=== PATIENT | male | born 1970 | race American Indian/Alaskan Native ===

== ENCOUNTER 2016-12-27 08:34 | Emergency (ER) | payer BC, OTHER ==
[2016-12-27 08:45] VITALS: BP 136/91
--- NOTE | 2016-12-27 11:13 | Emergency Department Report ---
ED Rash HPI - HPI Chief Complaint: Skin Rash Stated Complaint: BLEEDING ON BACK OF HEAD UNSURE WHY Time Seen by Provider: 12/27/16 11:06 Duration: 1month Location: Head Rash Symptoms: Yes Itching, Yes Blistering, No Facial Swelling, No Tongue/Oral Swelling, No Breathing Difficulties, No Choking Sensation, No Wheezing/Dyspnea, No Peeling, No Fever, No Malaise, No Myalgias Severity: mild Other History: 46M PMH none p/w c/o itchy rash to back of scalp x1 month. States it is very itchy, he scratches it constantly, denies involvement of any other body part. No fever, no chills, no other rash any other body part. ED Review of Systems ROS: Stated complaint: BLEEDING ON BACK OF HEAD UNSURE WHY Other details as noted in HPI Constitutional: denies: chills, fever Eyes: denies: eye pain, eye discharge, vision change ENT: denies: ear pain, throat pain Respiratory: denies: cough, shortness of breath, wheezing Cardiovascular: denies: chest pain, palpitations Endocrine: no symptoms reported Gastrointestinal: denies: abdominal pain, nausea, diarrhea Genitourinary: denies: urgency, dysuria Musculoskeletal: denies: back pain, joint swelling, arthralgia Skin: as per HPI, rash (itchy rash to back of scalp). denies: lesions Neurological: denies: headache, weakness, paresthesias Psychiatric: denies: anxiety, depression Hematological/Lymphatic: denies: easy bleeding, easy bruising ED Past Medical Hx - Past Medical History Additional medical history: hernia - Surgical History Additional Surgical History: Right inguinal HERNIA repair 2001. - Social History Smoking Status: Never Smoker Substance Use Type: Alcohol - Medications Home Medications: Home Medications Medication Instructions Recorded Confirmed Last Taken Type Doxycycline [Vibramycin CAP] 100 mg PO Q12HR #14 capsule 12/27/16 Unknown Rx Permethrin [Lice Cream Rinse] 120 ml TP QDAY #1 liquid 12/27/16 Unknown Rx Selenium Sulfide/Menthol [Selsun 118 ml TP QDAY #1 suspension 12/27/16 Unknown Rx Blue 1% Shampoo] Rash Exam - Exam General: Vital signs noted. No distress. Alert and acting appropriately. HEENT: No Periorbital Edema, No Conjuctival Injection, No Chemosis, No Perioral Edema, No Tongue Edema, No Uvular Edema, No Compromised Airway, No Drooling Lungs: Yes Good Air Exchange (Normal Breath Sounds), No Wheezes, No Ronchi, No Stridor, No Cough, No Labored Respirations, No Retractions, No Use of Accessory Muscles, No Other Abnormal Lung Sounds Heart: Yes Regular, No Murmur Skin: Yes Encrustations (small areas of follicultits back of scalp), No Urticarial Rash, No Maculopapular Rash, No Morbilliform rash, No Bulla(e), No Excoriations, No Weeping, No Tenderness, No Erythema, No Edema Other: Positive: Abdomen Normal, Neurologic Normal, Musculoskeletal Normal ED Course Vital Signs 12/27/16 08:41 Temperature 97.7 F Pulse Rate 71 Respiratory 17 Rate Blood Pressure 136/91 O2 Sat by Pulse 100 Oximetry ED Medical Decision Making - Medical Decision Making A/P: scalp folliculitis vs tinea capitis vs scaboes 1- based on exam pt has small pustules on back of scalp most consistent with folliculitis but pt has had scabies numerous times in the past 2- will cover empirically with 7 day course of doxy for possible bacterial folliculitis, permethrin for scabies and selsun blue shampoo for possible tinea capitis 3- f/u with PMD Critical care attestation.: If time is entered above; I have spent that time in minutes in the direct care of this critically ill patient, excluding procedure time. ED Disposition Clinical Impression: Folliculitis Disposition: DC- TO HOME OR SELFCARE Is pt being admited?: No Does the pt Need Aspirin: No Condition: Stable Instructions: Folliculitis (ED), Tinea Capitis (ED), Scabies (ED) Prescriptions: Doxycycline [Vibramycin CAP] 100 mg PO Q12HR #14 capsule Permethrin [Lice Cream Rinse] 120 ml TP QDAY #1 liquid Selenium Sulfide/Menthol [Selsun Blue 1% Shampoo] 118 ml TP QDAY #1 suspension Referrals: [facility] [Outside] - 3-5 Days [facility] [Provider Group] - 3-5 Days Forms: Work/School Release Form(ED) Time of Disposition: 11:30
== END 2016-12-27 11:47 | disposition home or self-care (01) ==
LOC: ED 08:34
DX: L73.9 Follicular disorder, unspecified (principal)
CPT/HCPCS: 99282